=== PATIENT | female | born 1945 | race African-American/Black ===

== ENCOUNTER 2017-01-15 07:51 | Emergency (ER) | payer MEDICARE, OTHER ==
[~2017-01-15] VITALS: Ht 157.5 cm; Wt 75.0 kg
[~2017-01-15 07:51] MED LIST: CETI10CA PO; GLUC500T12 PO; MULT-1018 PO; NIFE30TA92 PO; SPIR25TA3 PO; UBID100C16 PO; [UNRECOGNIZED DRUG - CODE] PO
--- NOTE | 2017-01-15 07:53 | ED.REPORT ---
HPI-Chest Pain 40 and Over Date of Service Jan 15, 2017 ED Provider: Michael Guan DO Patient is a 71 year old female with a hx of HTN who presents to the ED complaining of chest pressure onset last night while laying in bed. She describes the pressure as a "fullness" in her chest and epigastric region. Her pain has presented intermittently after most meals for the last week and a half and kept her from sleeping last night. Associated symptoms include nausea, urinary frequency, and R sided back pain. She denies vomiting, diaphoresis, SOB , dizziness, extremity pain, burning sensation, or any other symptoms. 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 She has had symptoms like this previously and has been taking Ranitidine occasionally. Patient is concerned because she has an extensive family hx of CAD. Nursing Notes Stated Complaint: POSS HEART ATTACK Nursing Notes Reviewed: Yes Allergies: Coded Allergies: lisinopril (Verified Allergy, Unknown, 04/24/15) Scheduled Cetirizine HCl (Zyrtec) 10 Mg Capsule 10 MG PO HS Multivitamin (Multi Vitamin Daily) 1 Each Tablet 1 EACH PO DAILY Nifedipine ER (Adalat CC) 30 Mg Tablet 30 MG PO DAILY Omeprazole (Omeprazole) 20 Mg Tablet.dr 20 MG PO DAILY Spironolactone (Spironolactone) 25 Mg Tablet 25 MG PO DAILY Ubidecarenone (Coq-10) 100 Mg Capsule 200 MG PO DAILY Miscellaneous Medications Glucosamine (Glucosamine) 500 Mg Tablet 500 MG PO Lecithin (Lecithin) 1,200 Mg Capsule 1,200 MG PO General Time Seen by MD: 08:00 Chief Complaint Chest pressure Hx Obtained From: Patient Arrived By: Walk-in Sudden in Onset?: Yes Onset Occurred: Yesterday Symptom Duration: Since onset Similar Sx Previous: Yes Risk Factors )( CAD Risk Stratification HypertensionNo Diabetes mellitus, No Hyperlipidemia, No Known CAD Risk factors reviewed )( TAD Risk Stratification HypertensionNo Risk factors reviewed )( PE Risk Stratification No , No , No Surgery Last 60 Days Risk factors reviewed Past Medical History 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 Stress test 2008: normal Past Medical History HTN arthritis Past Surgical History Reports: Hysterectomy, Tonsillectomy Smoking History Never Smoker Social History Pt attends yoga classes Other Social History: Good social support, Ambulatory Status Independent Review of Systems Review of Systems Note: -burning sensation Respiratory: Denies: Shortness of breath Cardiovascular: Reports: Chest pain (pressure ) GI: Reports: Nausea, Denies: Vomiting Musculoskeletal: Reports: Back pain, Denies: Extremity pain Skin: Denies Diaphoresis Neurologic: Denies: Dizziness Complete sys rev & neg: except as marked. Female: Reports: Urinary frequency Physical Exam Initial Vital Signs Vital Signs (First) Date Time Temp Pulse Resp B/P Pulse Ox O2 Delivery O2 Flow Rate FiO2 01/15/17 07:54 36.6 89 16 163/98 100 Room Air Initial VS: Reviewed, Vital signs normal Head / Eyes: Atraumatic, Normocephalic, PERRL Skin: Warm, Dry Neurologic: Alert, Oriented, Nonfocal Psychiatric: Mood/affect normal, Behavior normal, Normal thought content General/Constitutional: Awake, Alert, No acute distress Respiratory / Chest: Atraumatic, Breath sounds NL, Breath sounds = bilat, No respiratory distress Cardiovascular: Heart rate NL, Regular rhythm, Heart sounds NL, No murmurs Abdomen: Atraumatic, Soft, Non-tender Neck: Atraumatic, Supple, Full range of motion Back: No CVA tenderness mild tenderness over the R rhomboid Lower Extremity / Pelvis / MS: Atraumatic Trace pitting edema bilaterally Interpretation & Diagnostics Lab Results Interpretation Result Diagram: 01/15/17 0812 01/15/17 0812 Test 01/15/17 08:12 White Blood Count 6.6th/mm3 (3.8-10.1) Red Blood Count 4.49mil/mm3 (3.90-5.20) Hemoglobin 13.3g/dL (12.0-15.6) Hematocrit 38.4% (35.0-46.0) Mean Corpuscular Volume 85.5fL (81-100) Mean Corpuscular Hemoglobin 29.6pg (27.0-35.0) Mean Corpuscular Hemoglobin Concent 34.6% (32.0-37.0) Red Cell Distribution Width 13.6% (12.3-15.4) Platelet Count 310bil/L (150-400) Neutrophils (%) (Auto) 81.8% (40-74) Lymphocytes (%) (Auto) 13.7% (14-46) Monocytes (%) (Auto) 3.8% (4-12) Eosinophils (%) (Auto) 0.2% (0-5) Basophils (%) (Auto) 0.2% (0-3) Prothrombin Time 10.0sec (8.1-12.5) Prothromb Time International Ratio 0.94ratio Sodium Level 135mEq/L (134-144) Potassium Level 4.1mEq/L (3.5-5.2) Chloride Level 97mEq/L (97-108) Carbon Dioxide Level 20mmol/L (18-29) Blood Urea Nitrogen 15mg/dL (8-27) Creatinine 0.69mg/dL (0.57-1.00) Estimat Glomerular Filtration Rate 108mL/min (>59) Glucose Level 127mg/dL (60-99) Calcium Level 9.4mg/dL (8.5-10.1) Magnesium Level 1.9mg/dL (1.6-2.6) Total Bilirubin 0.3mg/dL (0.0-1.2) Aspartate Amino Transf (AST/SGOT) 22U/L (0-50) Alanine Aminotransferase (ALT/SGPT) 16U/L (0-32) Alkaline Phosphatase 82U/L (25-165) Troponin T 0.010ug/L (0.0-0.011) Pro-B-Type Natriuretic Peptide 70.41pg/mL (0-301) Total Protein 8.2g/dL (6.4-8.4) Albumin 4.7g/dL (3.4-5.0) Hold Greene Top Tube Received (Received) ECG Interpretation ECG Interpretation: sinus arrhythmia rate 70 LVH flattened T waves in 2,3 AVF, and AVL similar to June 18, 2013 Time: 08:06 Interpreted by: ED physician X-Ray Chest Interpretation Chest Xray Interpretation: 1. No acute cardiopulmonary disease. Dictated by: Michel Arias M.D. on 01/15/2017 at 8:25 Approved by: Michel Arias M.D. on 01/15/2017 at 8:26 View: Portable, 1 view Interpretation / Wet Read by: Interpret - Radiologist Re-Eval/Medical Decision Med Decision/Clinical Course 71-year-old female with a history of hypertension and a strong family history of heart disease presents with chest pain that has been ongoing for the past week and a half, worsening last night to the point that she had significant difficulty sleeping. She noted associated nausea and back pain, but no shortness of breath. Her troponin and BNP were negative. EKG shows no concerning findings for ischemia. Acute coronary syndrome has been ruled out. She has had a thorough cardiac workup in 2008 and 2013, at which time after her stress test it was concluded that she had chest pain related to GI symptoms. Her pain improved with a GI cocktail. Given her extensive family history and her symptoms I do think it would be reasonable to consider another stress test. I have asked her to follow up with her primary care provider to set this up if felt to be necessary. I also advised that she take omeprazole 20 mg daily for 2 weeks, and that she return should her symptoms return or worsen. Time of Eval: 08:52 Re-Evaluation/Progress Note: Rechecked patient. Her pain is now a 5/10. Time of Eval: 09:39 Re-Evaluation/Progress Note: Rechecked pt who is feeling much better. Discussed plan for discharge. Patient understands and agrees with plan. All questions addressed at this time. Counseled Regarding: Diagnosis, Lab results, Need for follow-up, When/why to return to ED Discharge & Departure Primary Impression: Rhomboid muscle strain Encounter type: initial encounter Qualified Code: S29.012A - Strain of muscle and tendon of back wall of thorax, initial encounter Additional Impressions: GERD (gastroesophageal reflux disease) Esophagitis presence: esophagitis presence not specified Qualified Code: K21.9 - Gastro-esophageal reflux disease without esophagitis Non-cardiac chest pain Disposition: Home Discharge Condition All VS Reviewed: Yes Condition: Improved Patient Instructions: Gastroesophageal Reflux Disease (ED) Additional Instructions: Thank you for coming to the emergency department. Your EKG, Xray, labs, and examination are reassuring. We did not find a dangerous cause for your symptoms and I do not believe they are related to your heart. Use ice and heat (20 minutes at a time, 3-4 times a day) for your rhomboid strain. Ibuprofen (up to 600mg every 6 hours) may help relieve your pain but may also make your abdominal symptoms worse. Taking acid-blocking medication as prescribed should help relieve your abdominal symptoms. Read the packet attached for more information regarding reflux. Follow up with your primary doctor within the next week. Talk to him about scheduling a stress test in the near future. Return to the emergency department for shortness of breath, sweating, nausea, vomiting, chest pain, or any other new or concerning symptoms. Referrals: Mario Coffman MD (PCP) Scribe Attestation Portions of this note were transcribed by Delroy Dietrich. I, Dr. Guan personally performed the history, physical exam and medical decision-making; I reviewed and confirmed the accuracy of the information in the transcribed note. Signed by: Catina Castillo, 01/15/17 copies to: Mario Coffman MD, Gary R DO Jan 15, 2017 07:53 DELROY DIETRICH Jan 15, 2017 08:15
[2017-01-15 07:54] VITALS: BP 163/98; PULSE 89; RESP 16; O2SAT 100
[2017-01-15] MEDS ORDERED: 0.9% Sodium Chloride 1,000 ML IV ONE (08:01)
[2017-01-15 08:11] VITALS: BP 154/95; PULSE 74; RESP 15; O2SAT 100
[2017-01-15 08:15] LABS: BASOPHILS % (AUTO) 0.2 % (0-3); EOSINOPHILS % (AUTO) 0.2 % (0-5); MONOCYTES % (AUTO) 3.8 % (4-12); Mean Corpuscular Hemoglobin 29.6 pg (27.0-35.0); Mean Corpuscular Volume 85.5 fL (81-100); NEUTROPHILS % (AUTO) 81.8 % (40-74); Platelet Count 310 bil/L (150-400)
--- NOTE | 2017-01-15 08:27 | DRSVH ---
PROCEDURE: X-RAY CHEST ONE VIEW, PORTABLE ([id number]) INDICATIONS: chest pain TECHNIQUE: One view of the chest was acquired. COMPARISON: [facility], , CHEST 1VW (PORTABLE), 06/18/2013, 17:47. FINDINGS: Surgical changes and devices: None. Lungs and pleura: No pleural effusions or pneumothorax. Lungs are clear. Mediastinum: Mediastinal contours appear normal. Heart size is normal. Bones and chest wall: No suspicious bony lesions. Overlying soft tissues appear unremarkable. IMPRESSION: 1. No acute cardiopulmonary disease. Dictated by: Michel Arias M.D. on 01/15/2017 at 8:25 Approved by: Michel Arias M.D. on 01/15/2017 at 8:26
[2017-01-15 08:32] LABS: INR 0.94 ratio
[2017-01-15 08:40] LABS: TROPONIN T 0.01 ug/L (0.0-0.011)
[2017-01-15 08:41] VITALS: BP 148/78; PULSE 66; RESP 11; O2SAT 100
[2017-01-15 08:51] LABS: Magnesium 1.9 mg/dL (1.6-2.6)
[2017-01-15] MEDS ORDERED: LidocaineVisc 2%:Antacid 1:1 10 mL Syringe PO ONE (08:55)
[2017-01-15] MEDS ORDERED: OMEP20TA86 PO (09:42)
[2017-01-15 09:45] VITALS: BP 141/64; PULSE 68; RESP 13; O2SAT 98
[2017-01-15 10:02] VITALS: BP 141/64; PULSE 68; RESP 13; O2SAT 98
== END 2017-01-15 10:03 | disposition home or self-care (01) ==
LOC: SED 07:51
DX: S29.012A Strain of muscle and tendon of back wall of thorax, initial encounter (principal); K21.9 Gastro-esophageal reflux disease without esophagitis; R07.89 Other chest pain; X58.XXXA Exposure to other specified factors, initial encounter; Y93.84 Activity, sleeping; Y92.003 Bedroom of unspecified non-institutional (private) residence as the place of occurrence of the external cause; Y99.8 Other external cause status; I10 Essential (primary) hypertension; Z88.8 Allergy status to other drugs, medicaments and biological substances
CPT/HCPCS: 36415; 71010; 80053; 83735; 83880; 84484; 85025; 85610; 93005; 96360; 96361; 99285; J7030